=== PATIENT | female | born 1945 | race Caucasian/White ===

== ENCOUNTER → 2017-02-10 | Outpatient (CLI) | payer OTHER ==
[~2017-02-10] MED LIST: AMLO-114 PO; ATOR-22 PO; BIMA0.01 OP; CALC-354 PO; GLIP10TA9 PO; LOSA1TAB38 PO; MULT-190 PO; MULT1TAB22 PO; SITA100T3 PO
--- NOTE | 2017-02-10 13:11 | MAMMOGRAPHY REPORT ---
BILATERAL DIGITAL SCREENING MAMMOGRAM WITH CAD: 02/10/2017 CLINICAL HISTORY: Routine screening. Patient has no complaints. TECHNIQUE: Bilateral CC and MLO views were obtained. Current study was also evaluated with a Compute r Aided Detection (CAD) system. COMPARISON: Comparison is made to exams dated: 02/10/2016 mammogram, 02/06/2015 mammogram, 02/05/2014 mamm ogram, 02/02/2013 mammogram, 02/02/2012 mammogram, and 01/29/2011 mammogram - [facility] er. BREAST COMPOSITION: The tissue of both breasts is heterogeneously dense, which may obscure small mas ses. FINDINGS: An asymmetry in the lateral right breast appears similar to the 2009, 2010 and 2013 mammog khoa, most likely normal overlapping tissue. There are stable scattered and grouped round and puncta te microcalcifications bilaterally. Mild vascular calcification in the breasts. No suspicious mass, architectural distortion or cluster of microcalcifications is seen. IMPRESSION: ACR BI-RADS CATEGORY 2: BENIGN There is no mammographic evidence of malignancy. A 1 year screening mammogram is recommended. The pa tient will receive written notification of the results. Approximately 10% of breast cancers are not detected with mammography. A negative mammographic report should not delay biopsy if a clinically suggestive mass is present. Leonora Blackwell M.D. ay/:02/10/2017 12:47:59 [place] Carver: Irene GONZALEZ(R)(M), [facility] letter sent: Normal 1/2 BI-RADS Code: ACR BI-RADS Category 2: Benign
== END | disposition home or self-care (01) ==
LOC: C.MAMM 10:16
PROVIDERS: ATTEND Family Medicine
DX: Z12.31 Encounter for screening mammogram for malignant neoplasm of breast (principal)

== ENCOUNTER 2017-02-15 14:30 | Emergency (ER) | payer OTHER ==
[~2017-02-15] VITALS: Ht 157.5 cm; Wt 67.6 kg
[2017-02-15 14:39] VITALS: TEMP 36.6; Ht 157.5 cm; Wt 67.6 kg
[2017-02-15] MEDS ORDERED: LIDOCAINE/EPINEPHRINE 1% 20 ML VIAL INFIL STA (14:53)
[2017-02-15] MEDS ORDERED: ATOR-22 PO (15:01)
[2017-02-15] MEDS ORDERED: MULT1TAB22 PO (15:01)
[2017-02-15] MEDS ORDERED: BIMA0.01 OP (15:01)
[2017-02-15] MEDS ORDERED: GLIP10TA9 PO ×2 (15:01)
[2017-02-15] MEDS ORDERED: SITA100T3 PO (15:01)
[2017-02-15] MEDS ORDERED: AMLO-114 PO (15:01)
[2017-02-15] MEDS ORDERED: MULT-190 PO (15:01)
[2017-02-15] MEDS ORDERED: LOSA1TAB38 PO (15:01)
[2017-02-15] MEDS ORDERED: CALC-354 PO (15:01)
--- NOTE | 2017-02-15 15:17 | DIAGNOSTIC IMAGING REPORT ---
CT HEAD WITHOUT CONTRAST (CT) CLINICAL HISTORY: Head trauma with scalp laceration. Head pain. COMPARISON STUDY: No previous studies for comparison. TECHNIQUE: Axial CT of the brain is performed from the vertex to the skull base. IV contrast was not administered for this examination. CT DOSE: 710.65 mGycm FINDINGS: No intra or extra-axial mass lesions are visualized. There is no CT evidence of acute cortical infarction. There is no evidence of midline shift. There is no acute hemorrhage. No calvarial fractures are visualized. There are patchy white matter hypodensities likely on a small vessel basis. There is no evidence of pathologic ventricular dilatation. There is no evidence of acute sinusitis There is a right frontal scalp laceration. There are extensive vertebrobasilar calcifications. IMPRESSION: 1. Right frontal scalp laceration 2. No acute intracranial findings. Electronically signed by: Fredy Chaney M.D. 02/15/2017 3:16 PM Dictated Date/Time: 02/15/2017 3:15 PM
--- NOTE | 2017-02-15 15:38 | EMERGENCY ROOM VISIT NOTE ---
ED Visit Note First contact with patient: 14:45 Chief Complaint: "Laceration on head, fell". History of Present Illness: This patient is a 71 who presents to the Emergency Department via private vehicle for evaluation of their laceration to the right scalp. Patient sustained the laceration while outside today near the chimney at approximately 7:30 AM. Patient states that she tripped and fell striking her head on the chimney. She did not fall to the ground. They report a moderate amount of bleeding initially. They report no loss of consciousness. They deny any headache, visual disturbance, nausea, vomiting, or neck pain. She also notes bruising to the right inferior orbital region. She declines any pain medication. She denies any anticoagulant use. She denies any facial or neck pain. Patient rates her current discomfort as a 3/10. Patient's Tetanus status is currently up-to-date. Medications: As noted below Allergies: No known allergies PMH: No pertinent past medical history SHx: Patient lives locally with family ROS: All pertinent positive and negative review of systems are appropriately documented in the History of Present Illness. Physical Exam: VITAL SIGNS - Vital signs and nursing notes were reviewed. GENERAL -71-year-old female appearing her stated age. Communicates well with provider and answers questions appropriately. SKIN - There is a 5 cm laceration noted the right parietal region. The edges gape apart with traction. There is no active bleeding appreciated. No deep structures including vessels, musculature, or bony structures are appreciated. HEAD - Normocephalic. No Acosta's Sign or Raccoon's Eyes. No depressed skull fractures palpable. EYES - PERRL with EOMI bilaterally. Without subconjunctival hemorrhage. Palpebral conjunctiva pink and moist with no injection. There is small bruising and edema noted to the right maxillary region at the corner of the cheekbone EARS - No deformities of external structures noted on gross examination bilaterally. No hemotympanum present. No tympanic perforation noted. NOSE - Midline and without cyanosis. No epistaxis or clear watery discharge noted. Septum midline without deviation. No septal hematoma noted. No overlying ecchymosis noted. MOUTH/OROPHARYNX - Without perioral cyanosis. Tongue midline with equal elevation of palate bilaterally. No blood noted in the oropharynx. No tonsillar hypertrophy, erythema, or exudates noted. No dental fractures noted. NECK - FROM assessed. No tenderness to palpation over the cervical spinous processes. No cervical paraspinal muscle tenderness noted. LUNGS - Chest wall symmetric without accessory muscle use, intercostals retractions, or central cyanosis. Normal vesicular breath sounds CTA B/L. No wheezes, rales, or rhonchi appreciated. CARDIAC - RRR with S1/S2. No murmur, rubs, or gallops appreciated. EXTREMITIES - No gross deformities noted of the extremities. +5/5 strength noted in UE/LE bilaterally. NEUROLOGIC - Cranial nerves II through XII grossly intact. Sensory intact to light touch throughout. PSYCH - Pt is very pleasant and interacts well with examiner. IMAGING: CT HEAD WITHOUT CONTRAST (CT) CLINICAL HISTORY: Head trauma with scalp laceration. Head pain. COMPARISON STUDY: No previous studies for comparison. TECHNIQUE: Axial CT of the brain is performed from the vertex to the skull base. IV contrast was not administered for this examination. CT DOSE: 710.65 mGycm FINDINGS: No intra or extra-axial mass lesions are visualized. There is no CT evidence of acute cortical infarction. There is no evidence of midline shift. There is no acute hemorrhage. No calvarial fractures are visualized. There are patchy white matter hypodensities likely on a small vessel basis. There is no evidence of pathologic ventricular dilatation. There is no evidence of acute sinusitis There is a right frontal scalp laceration. There are extensive vertebrobasilar calcifications. IMPRESSION: 1. Right frontal scalp laceration 2. No acute intracranial findings. Electronically signed by: Fredy Chaney M.D. 02/15/2017 3:16 PM Dictated Date/Time: 02/15/2017 3:15 PM ED Course: Patient was seen and evaluated by myself. Patient had no focal neurological deficits. Patient's exam is otherwise unremarkable. Patient reports no headaches , visual disturbances, nausea, vomiting, or over-lethargy. Risk and benefit of CT scan was discussed with the patient, the decision was made to obtain a CT scan. Results as above. No acute intracranial abnormality. She was informed upon the internal findings of which she is to schedule a follow-up with her family doctor for. Risks and benefits of performing primary wound closure versus no repair were discussed with the patient who verbalizes understanding. Verbal consent was obtained prior to performing the procedure. 4 cc of 1% buffered lidocaine was used to anesthetize the 5 cm laceration. The wound was cleansed and prepped in the typical sterile fashion utilizing normal saline and Betadine. The wound was sterilely draped. Once proper anesthetization was established, the wound was further examined and demonstrated a clean laceration. The wound was copiously irrigated with normal saline. The wound was closed using 6 hung with the wound edges being well approximated. Patient tolerated the procedure well. No complications were met. The wound was cleansed and dressed with a Bacitracin dressing. Patient received their Adacel vaccination. Patient educated on worrisome symptoms for return visit to the Emergency Department. Patient discharged to home in good condition. In the evaluation and treatment of this patient, the following differential diagnoses were considered: Concussion, Contrecoup Injury, Brain Tumor, Depression, Encephalitis, Hypothyroidism, Meningitis, CVA, TIA, Migraine, Cluster Headache, Intracranial Abnormality, Intracranial Hemorrhage, Subdural Hematoma, Subarachnoid Hemorrhage, Hydrocephalus. Current/Historical Medications Scheduled Amlodipine (Norvasc), 10 MG PO DAILY Atorvastatin (Lipitor), 20 MG PO DAILY Bimatoprost (Lumigan), 1 DROPS OP HS Calcium Carbonate-Cholecalcife (Caltrate 600+D), 2 TAB PO DAILY Glipizide (Glucotrol), 10 MG PO QPM Glipizide (Glucotrol), 20 MG PO QAM Losartan Potassium (Cozaar), 100 MG PO DAILY Multiple Vitamins W/ Minerals (One Daily For Women), 1 TAB PO DAILY Ocuvite Preservision (Ocuvite Preservision), 2 TAB PO DAILY Sitagliptin Phosphate (Januvia), 100 MG PO DAILY Allergies Coded Allergies: No Known Allergies (Unverified , 02/15/17) Vital Signs Date Time Temp Pulse Resp B/P (MAP) Pulse Ox O2 Delivery O2 Flow Rate FiO2 02/15/17 16:20 70 16 149/93 98 02/15/17 14:39 36.6 70 18 156/82 97 Room Air Medications Administered Medications (Trade) Dose Ordered Sig/Candi Route Start Time Stop Time Status Last Admin Dose Admin Lidocaine/ Epinephrine (Xylocaine/Epine 1% Inj) 20 ml ONE STAT INFIL 02/15/17 14:53 02/15/17 14:55 DC 02/15/17 15:10 20 ML Departure Information Impression Primary Impression: Laceration Dispostion Home / Self-Care Condition GOOD Referrals No Doctor, Assigned (PCP) Patient Instructions [facility] Additional Instructions Discharge Instructions: You have received 6 hung on your right scalp. These hung are NOT dissolvable and WILL need to be removed by a health care provider in 7-10 days. You can return to the Emergency Department or contact your Primary Care Provider to have these hung removed. Proper wound care is essential for adequate wound healing and infection prevention. You can shower and clean the wound with soap and water. Do scour over the wound, pat dry with a towel. Do not submerse the wound until the hung have been removed. You can use an antibiotic ointment with a dressing over the wound for the next 3-4 days. After this time you may leave the wound dry and open to the air. If crust develops over the wound you can use a Q-tip to apply a 1:1 peroxide:water solution to clean the wound. Look for signs of infection of the wound including: increased pain, swelling, foul discharge, streaking, or increased temperature. If any of these are noticed you should return to the Emergency Department for further assessment and treatment. As with any laceration you may have received nerve damage to the surrounding tissues. This damage may or may not be permanent. For pain control, you can use the following [id number] medicines (if >12 yo): - Regular strength (325mg/tab) Tylenol (acetaminophen) 2 tabs every 4-6 hours as needed. Do not exceed 12 tablets in a 24 hour period. Avoid taking more than 3 grams (3000 mg) of Tylenol per day. This includes any other sources of acetaminophen you may take on a regular basis. - Regular strength (200 mg/tab) Advil (ibuprofen) 1-2 tabs every 4-6 hours as needed. Do not exceed a dose of 3200 mg per day. Return to the emergency department if your symptoms worsen despite treatment course outlined above. Please follow-up with the CT scan findings as listed below. Please follow up with your family doctor. CT HEAD WITHOUT CONTRAST (CT) CLINICAL HISTORY: Head trauma with scalp laceration. Head pain. COMPARISON STUDY: No previous studies for comparison. TECHNIQUE: Axial CT of the brain is performed from the vertex to the skull base. IV contrast was not administered for this examination. CT DOSE: 710.65 mGycm FINDINGS: No intra or extra-axial mass lesions are visualized. There is no CT evidence of acute cortical infarction. There is no evidence of midline shift. There is no acute hemorrhage. No calvarial fractures are visualized. There are patchy white matter hypodensities likely on a small vessel basis. There is no evidence of pathologic ventricular dilatation. There is no evidence of acute sinusitis There is a right frontal scalp laceration. There are extensive vertebrobasilar calcifications.
--- NOTE | 2017-02-15 15:46 | EMERGENCY ROOM VISIT NOTE ---
ED Visit Note First contact with patient: 14:45 Patient was seen by our PA/SOFTWARE SYSTEMS ENGINEER. I was involved in the patient's care and did evaluate the patient myself. I was involved in the care throughout the ER stay. The patient's laceration has been repaired, there is no evidence for skull fracture or intracranial bleeding. She is safe for discharge home.
[2017-02-15 16:20] VITALS: BP 149/93; PULSE 70; O2SAT 98
== END 2017-02-15 16:21 | disposition home or self-care (01) ==
LOC: C.EDB 14:31 → C.EDD 16:21
DX: S01.01XA Laceration without foreign body of scalp, initial encounter (principal); W01.0XXA Fall on same level from slipping, tripping and stumbling without subsequent striking against object, initial encounter; Z79.899 Other long term (current) drug therapy; Y92.018 Other place in single-family (private) house as the place of occurrence of the external cause

== ENCOUNTER 2017-02-23 09:25 | Emergency (ER) | payer OTHER ==
[~2017-02-23] VITALS: Ht 157.5 cm; Wt 67.6 kg
[2017-02-23 09:27] VITALS: TEMP 36.5; Ht 157.5 cm; Wt 67.6 kg
--- NOTE | 2017-02-23 10:10 | EMERGENCY ROOM VISIT NOTE ---
ED Visit Note First contact with patient: 09:37 CHIEF COMPLAINT: Staple removal head laceration HISTORY of present illness: This 71-year-old female patient returns to the ED today for removal of hung that were placed 8 days ago into her right parietal region.. There has been no swelling, redness, or drainage from the wound. The patient feels like the laceration is healing well. REVIEW OF SYSTEMS: 6 system review was performed and was negative unless stated otherwise in history of present illness. PMH: The patient is healthy; diabetes, hypertension, hyperlipidemia SOCIAL HISTORY: Patient lives with her . PHYSICAL EXAM: Vital Signs: Were reviewed Reviewed Nurse's notes. GEN.: 71- year-old white female appears in no acute distress. MENTAL Status: Alert and oriented 3. Scalp: There is a stapled wound on the rt parietal region with no signs of infection. There is no erythema, swelling, or tenderness. EMERGENCY DEPARTMENT COURSE: The hung were removed with some difficulty. Wound edges were therefore dermabond was applied. DIAGNOSIS: Healing scalp laceration and staple removal DISCHARGE INSTRUCTIONS AND TREATMENT: Do not submerge head in water until dermabond falls off Current/Historical Medications Scheduled Amlodipine (Norvasc), 10 MG PO DAILY Atorvastatin (Lipitor), 20 MG PO DAILY Bimatoprost (Lumigan), 1 DROPS OP HS Calcium Carbonate-Cholecalcife (Caltrate 600+D), 2 TAB PO DAILY Glipizide (Glucotrol), 10 MG PO QPM Glipizide (Glucotrol), 20 MG PO QAM Losartan Potassium (Cozaar), 100 MG PO DAILY Multiple Vitamins W/ Minerals (One Daily For Women), 1 TAB PO DAILY Ocuvite Preservision (Ocuvite Preservision), 2 TAB PO DAILY Sitagliptin Phosphate (Januvia), 100 MG PO DAILY Allergies Coded Allergies: No Known Allergies (Unverified , 02/15/17) Vital Signs Date Time Temp Pulse Resp B/P (MAP) Pulse Ox O2 Delivery O2 Flow Rate FiO2 02/23/17 09:27 36.5 65 17 189/82 94 Room Air Departure Information Referrals Ghanshyam Caal M.D. (PCP) Patient Instructions [facility]
[2017-02-23 10:23] VITALS: BP 173/97; PULSE 64; O2SAT 98
== END 2017-02-23 10:27 | disposition home or self-care (01) ==
LOC: C.EDB 09:26 → C.EDA 10:27
DX: S01.91XD Laceration without foreign body of unspecified part of head, subsequent encounter (principal); X58.XXXD Exposure to other specified factors, subsequent encounter